=== PATIENT | male | born 1980 | race Caucasian/White ===

== ENCOUNTER 2019-11-19 08:15 | Observation (INO) | payer MEDICAID, OTHER ==
--- NOTE | 2019-11-19 09:18 | ED ---
General Adult HPI - General Chief complaint: Psychiatric Symptoms Stated complaint: Depression Time Seen by Provider: 11/19/19 08:24 Source: patient, police, RN notes reviewed Mode of arrival: wheelchair Limitations: no limitations - History of Present Illness Initial comments: Patient is a 31-year-old male presenting to the emergency department from half-way with correctional officers for depression. Patient admits to feeling depressed and having suicidal thoughts. Patient states he has not seen his kids and they were recently taken away from him and he has lost 2 jobs. Patient is also currently incarcerated. Officers state that patient has been agitated lately and he is currently the, stays been recently. There was some question whether or not patient could have benzodiazepine withdrawal. Patient denies taking benzodiazepines on a regular basis. Patient states he has taken Xanax and one other medication once however does not regularly take them. Patient has been incarcerated for the past week. Patient also states he does have some hallucinations, auditory and visual. - Related Data Home Medications Medication Instructions Recorded Confirmed Acetaminophen Tab [Tylenol Tab] 650 mg PO TID 11/19/19 11/19/19 Dicyclomine HCl 20 mg PO TID 11/19/19 11/19/19 Enalapril [Vasotec] 10 mg PO DAILY 11/19/19 11/19/19 Hydrochlorothiazide [Hydrodiuril] 25 mg PO DAILY 11/19/19 11/19/19 Promethazine [Phenergan] 25 mg PO TID 11/19/19 11/19/19 cloNIDine HCL [Catapres] 0.1 mg PO TID 11/19/19 11/19/19 hydrOXYzine PAMOATE 50 mg PO TID 11/19/19 11/19/19 Allergies Allergy/AdvReac Type Severity Reaction Status Date / Time No Known Allergies Allergy Verified 11/19/19 13:39 Review of Systems ROS Statement: Those systems with pertinent positive or pertinent negative responses have been documented in the HPI. ROS Other: All systems not noted in ROS Statement are negative. Constitutional: Denies: fever Eyes: Denies: eye pain ENT: Denies: ear pain Respiratory: Denies: cough Cardiovascular: Denies: chest pain Endocrine: Denies: fatigue Gastrointestinal: Denies: abdominal pain Genitourinary: Denies: dysuria Musculoskeletal: Denies: back pain Skin: Denies: rash Psychiatric: Reports: anxiety, depression, auditory hallucinations, visual hallucinations, suicidal thoughts Past Medical History Past Medical History: Hypertension History of Any Multi-Drug Resistant Organisms: None Reported Past Surgical History: Heart Catheterization, Orthopedic Surgery Past Psychological History: Anxiety Smoking Status: Current every day smoker Past Alcohol Use History: None Reported Past Drug Use History: Prescription Drug Abuse General Exam Limitations: no limitations General appearance: alert, in no apparent distress Head exam: Present: normocephalic Eye exam: Present: normal appearance, PERRL ENT exam: Present: normal oropharynx Neck exam: Present: normal inspection Respiratory exam: Present: normal lung sounds bilaterally Cardiovascular Exam: Present: regular rate, normal rhythm GI/Abdominal exam: Present: soft. Absent: distended, tenderness Extremities exam: Present: normal inspection Neurological exam: Present: alert Psychiatric exam: Present: anxious Skin exam: Present: normal color Course Vital Signs 11/19/19 11/19/19 11/19/19 08:17 09:21 10:00 Temperature 98.3 F 99.0 F Pulse Rate 112 H 108 H 96 Respiratory 24 20 Rate Blood Pressure 142/91 118/104 O2 Sat by Pulse 98 100 Oximetry 11/19/19 11:00 Temperature Pulse Rate 106 H Respiratory Rate Blood Pressure O2 Sat by Pulse Oximetry Medical Decision Making - Medical Decision Making Since he by mental health services, who will admit. - Lab Data Lab Results 11/19/19 Range/Units 11:21 Urine Opiates Screen Not Detected (NotDetected) Ur Oxycodone Screen Not Detected (NotDetected) Urine Methadone Screen Not Detected (NotDetected) Ur Propoxyphene Screen Not Detected (NotDetected) Ur Barbiturates Screen Not Detected (NotDetected) U Tricyclic Antidepress Not Detected (NotDetected) Ur Phencyclidine Scrn Not Detected (NotDetected) Ur Amphetamines Screen Not Detected (NotDetected) U Methamphetamines Scrn Not Detected (NotDetected) U Benzodiazepines Scrn Not Detected (NotDetected) Urine Cocaine Screen Not Detected (NotDetected) U Marijuana (THC) Screen Detected H (NotDetected) Disposition Clinical Impression: Depression, Suicidal ideation Disposition: TRANSFER TO PSYCH HOSP/UNIT Is patient prescribed a controlled substance at d/c from ED?: No Referrals: None,Stated [Primary Care Provider] - 1-2 days Decision Time: 13:54
[2019-11-19 11:58] LABS: Amphetamine Screen,Urine Not Detected (NotDetected); Barbiturate Screen,Urine Not Detected (NotDetected); Benzodiazepines Screen,Urine Not Detected (NotDetected); Cocaine Screen,Urine Not Detected (NotDetected); Methadone Screen, Urine Not Detected (NotDetected); Opiate Screen,Urine Not Detected (NotDetected); Oxycodone Screen, Urine Not Detected (NotDetected); Phencyclidine Screen,Urine Not Detected (NotDetected); Tricyclic Antidepressant,Urine Not Detected (NotDetected); Urn Cannabinoid Scrn Detected (NotDetected)
[2019-11-19] MEDS ORDERED: ACETAMINOPHEN TAB 500 MG TAB PO STA (14:40)
[2019-11-19] MEDS ORDERED: SODIUM CHLORIDE 0.9% 1,000 ML IV SCH ×2 (14:45→17:15)
[2019-11-19 15:21] LABS: Basophils # (A) 0.3 k/uL (0-0.2); Basophils % (A) 2 %; Eosinophils # (A) 0.1 k/uL (0-0.7); Eosinophils % (A) 1 %; HCT 50.6 % (39.0-53.0); HGB 18.2 gm/dL (13.0-17.5); Hyperchromasia Slight; Lymphocytes # (A) 0.7 k/uL (1.0-4.8); Lymphocytes % (A) 5 %; MCH 31.6 pg (25.0-35.0); MCV 87.8 fL (80.0-100.0); Mean Platelet Volume 7.7; Monocytes # (A) 0.9 k/uL (0-1.0); Monocytes % (A) 7 %; Neutrophils % (A) 84 %; Platelet Count 222 k/uL (150-450); RBC 5.76 m/uL (4.30-5.90); RDW 12.3 % (11.5-15.5); WBC 13.1 k/uL (3.8-10.6)
--- NOTE | 2019-11-19 15:23 | CT ---
EXAMINATION TYPE: CT brain wo con DATE OF EXAM: 11/19/2019 COMPARISON: None HISTORY: Mental status changes. CT DLP: 1099.[address] of the brain was performed. The ventricles, basal cisterns and sulci overlying the cerebral convexities demonstrate a normal appe arance. There is no evidence for intracranial hemorrhage or sulcal effacement. No mass effects are seen. Osseous calvarium is intact. Pineal gland calcification. If symptoms persist consider MRI as clinically warranted. IMPRESSION: 1. No acute intracranial process is seen at this time.
[2019-11-19 15:28] LABS: ALT 34 U/L (4-49); AST 38 U/L (17-59); African American GFR (CKD) >90 (>60 ml/min/1.73 sqM); Albumin 5.4 g/dL (3.5-5.0); Alkaline Phosphatase 125 U/L (38-126); Anion Gap 15 mmol/L; Blood Urea Nitrogen 22 mg/dL (9-20); Calcium 10.3 mg/dL (8.4-10.2); Carbon Dioxide 23 mmol/L (22-30); Chloride 97 mmol/L (98-107); Glucose 240 mg/dL (74-99); Non-African American GFR(CKD) >90 (>60 ml/min/1.73 sqM); Partial Thromboplastin Time 24.8 sec (22.0-30.0); Potassium 3.6 mmol/L (3.5-5.1); Prothrombin Time 10.2 sec (9.0-12.0); Sodium 135 mmol/L (137-145); Total Bilirubin 1.9 mg/dL (0.2-1.3); Total Protein 8.6 g/dL (6.3-8.2)
--- NOTE | 2019-11-19 15:31 | XR ---
EXAMINATION TYPE: XR chest 2V DATE OF EXAM: 11/19/2019 COMPARISON: NONE HISTORY: Chest pain TECHNIQUE: Frontal and lateral views of the chest are obtained. FINDINGS: There is no focal air space opacity. No evidence for pneumothorax. No pleural effusion. The cardiac silhouette size is within normal limits. The osseous structures are grossly intact. IMPRESSION: 1. No acute cardiopulmonary process.
[2019-11-19] MEDS ORDERED: LORazepam 2 MG/ML INJ IV STA (16:12)
[2019-11-19] MEDS ORDERED: NALOXONE 0.4 MG/ML 1 ML VIAL IV PRN (17:11)
[2019-11-19] MEDS ORDERED: ACETAMINOPHEN TAB 325 MG TAB PO PRN (17:11)
[2019-11-19] MEDS ORDERED: IBUPROFEN 400 MG TAB PO PRN (17:11)
--- NOTE | 2019-11-19 17:11 | ED ---
Medical Decision Making - Medical Decision Making Patient did develop fever in emergency department. Patient had further evaluation done and given Tylenol. Patient reevaluated at this time and feels much better. Patient is alert and oriented 3 and answers questions appropriately. No weakness. No meningismus. Discussion had with patient regarding lumbar puncture however patient refuses. Patient is felt to be very low suspicion for meningitis at this time. Source of fever however is not identified and patient is aware of this. Patient does them straight medical decision making. Case was discussed with psychiatrist, Dr. Louis who feels patient would be somewhat more benefit from medical admission and possible transfer to psychiatric admission tomorrow if patient remains stable. Case was also discussed with Dr. pruitt, who will admit covering for hospital call. EKG shows sinus tachycardia 105. MA 144. QRS 108. QT 350. QTC 462. Normal axis. Borderline inferior Q waves. No acute ST change. - Lab Data Result diagrams: 11/19/19 14:55 11/19/19 14:55 Lab Results 11/19/19 Range/Units 11:21 Urine Opiates Screen Not Detected (NotDetected) Ur Oxycodone Screen Not Detected (NotDetected) Urine Methadone Screen Not Detected (NotDetected) Ur Propoxyphene Screen Not Detected (NotDetected) Ur Barbiturates Screen Not Detected (NotDetected) U Tricyclic Antidepress Not Detected (NotDetected) Ur Phencyclidine Scrn Not Detected (NotDetected) Ur Amphetamines Screen Not Detected (NotDetected) U Methamphetamines Scrn Not Detected (NotDetected) U Benzodiazepines Scrn Not Detected (NotDetected) Urine Cocaine Screen Not Detected (NotDetected) U Marijuana (THC) Screen Detected H (NotDetected) Disposition Clinical Impression: Depression, Suicidal ideation, Fever Disposition: ADMITTED IP TO THIS HOSP Is patient prescribed a controlled substance at d/c from ED?: No
[2019-11-19] MEDS ORDERED: LORazepam 2 MG/ML INJ IV PRN (17:14)
[2019-11-19] MEDS: LORazepam 2 MG/ML INJ IV PRN ×2 (20:54→22:47)
[2019-11-19] MEDS: THIAMINE 100 MG TAB PO SCH ×2 (23:48→23:54)
[2019-11-20] MEDS: LORazepam 2 MG/ML INJ IV PRN ×2 (03:08→08:12)
[2019-11-20 07:02] LABS: Basophils # (A) 0.1 k/uL (0-0.2); Basophils % (A) 1 %; Eosinophils # (A) 0.2 k/uL (0-0.7); Eosinophils % (A) 1 %; HCT 48.2 % (39.0-53.0); HGB 17.1 gm/dL (13.0-17.5); Lymphocytes # (A) 1.1 k/uL (1.0-4.8); Lymphocytes % (A) 8 %; MCH 31.6 pg (25.0-35.0); MCHC 35.5 g/dL (31.0-37.0); MCV 89.1 fL (80.0-100.0); Mean Platelet Volume 7.7; Monocytes # (A) 0.8 k/uL (0-1.0); Monocytes % (A) 6 %; Neutrophils # (A) 10.3 k/uL (1.3-7.7); Neutrophils % (A) 82 %; Platelet Count 245 k/uL (150-450); RBC 5.41 m/uL (4.30-5.90); RDW 12.6 % (11.5-15.5); WBC 12.6 k/uL (3.8-10.6)
[2019-11-20 07:15] LABS: ALT 31 U/L (4-49); AST 38 U/L (17-59); African American GFR (CKD) >90 (>60 ml/min/1.73 sqM); Albumin 4.9 g/dL (3.5-5.0); Alkaline Phosphatase 118 U/L (38-126); Anion Gap 16 mmol/L; Blood Urea Nitrogen 20 mg/dL (9-20); Calcium 9.2 mg/dL (8.4-10.2); Carbon Dioxide 22 mmol/L (22-30); Chloride 98 mmol/L (98-107); Glucose 207 mg/dL (74-99); Non-African American GFR(CKD) 86 (>60 ml/min/1.73 sqM); Sodium 136 mmol/L (137-145); Total Bilirubin 1.5 mg/dL (0.2-1.3); Total Protein 8.1 g/dL (6.3-8.2)
[2019-11-20 08:04] VITALS: BP 108/70; PULSE 83; RESP 16; TEMP 98.3
[2019-11-20] MEDS: THIAMINE 100 MG TAB PO SCH (08:05)
[2019-11-20] MEDS ORDERED: MULTIVITAMINS, THERA 1 EACH TAB PO SCH (09:00)
[2019-11-20] MEDS ORDERED: METOPROLOL TARTRATE 25 MG TAB PO SCH (11:00)
--- NOTE | 2019-11-20 11:56 | P.HPIM ---
History of Present Illness Patient is a 31-year-old male was sent in from correction facility for depression patient is comparing of suicidal ideations. Patient was initially admitted to psychiatric floor and the patient out with fever because of which patient was admitted to my service. Patient presently doesn't have any fever patient had only 1 episode of 101 fever. Patient denied any flulike symptoms doesn't have any cough denied any dysuria patient doesn't have any photophobia, denied any diarrhea denied any nausea vomiting. Patient denied any headache neck rigidity. Patient has mild leukocytosis. Patient does have history of hypertension or change some of his medications. Patient had history of alcohol but patient wasn't correction for surgery for some time because of which I don't believe patient will have any withdrawals and patient is not expected to have any benzodiazepine withdrawals either. Ativan was discontinued. There is no clinical, biochemical are radiological evidence of infection except for mild leukocytosis which is reactive. Patient is medically stable to be discharged to either psychiatric floor at back to correction facility depending on the assessment by the psychiatrist. Patient will be discharged from medical service at this time. Review of Systems REVIEW OF SYSTEMS: CONSTITUTIONAL: No fever, no malaise, no fatigue. HEENT: No recent visual problems or hearing problems. Denied any sore throat. CARDIOVASCULAR: No chest pain, orthopnea, PND, no palpitations, no syncope. PULMONARY: No shortness of breath, no cough, no hemoptysis. GASTROINTESTINAL: No diarrhea, no nausea, no vomiting, no abdominal pain. NEUROLOGICAL: No headaches, no weakness, no numbness. HEMATOLOGICAL: Denies any bleeding or petechiae. GENITOURINARY: Denies any burning micturition, frequency, or urgency. MUSCULOSKELETAL/RHEUMATOLOGICAL: Denies any joint pain, swelling, or any muscle pain. ENDOCRINE: Denies any polyuria or polydipsia. The rest of the 14-point review of systems is negative. 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 before incarceration on 11/13/2019 lived with SO and 3 children, experienced a fall on rib cage before incarceration. Custodial nurse states he has been hallucinating for a 'couple days' prior to arrival at hospital on 11/19/2019 Smoking Status: Current every day smoker Past Alcohol Use History: Heavy Past Drug Use History: Cocaine, Marijuana, Prescription Drug Abuse Additional Drug Use History / Comment(s): patient was taking Xanax 0.6 TID at home prior to incarceration on 11/13/2019 - this has not been taken since incarceration - Past Family History Mother Family Medical History: Cancer, Diabetes Mellitus Additional Family Medical History / Comment(s): breast cancer Medications and Allergies Home Medications Medication Instructions Recorded Confirmed Type Acetaminophen Tab [Tylenol] 650 mg PO TID 11/19/19 11/19/19 History Dicyclomine HCl 20 mg PO TID 11/19/19 11/19/19 History Enalapril [Vasotec] 10 mg PO DAILY 11/19/19 11/19/19 History Promethazine [Phenergan] 25 mg PO TID 11/19/19 11/19/19 History hydrOXYzine PAMOATE 50 mg PO TID 11/19/19 11/19/19 History Metoprolol Tartrate [Lopressor] 25 mg PO BID #30 tab 11/20/19 Rx Allergies Allergy/AdvReac Type Severity Reaction Status Date / Time No Known Allergies Allergy Verified 11/19/19 13:39 Physical Exam Vitals: Vital Signs Temp Pulse Pulse Resp BP BP Pulse Ox 11/20/19 08:12 83 16 11/20/19 07:00 98.3 F 83 16 108/70 98 11/20/19 01:42 97.4 F L 112 H 18 141/95 95 11/19/19 19:52 98.7 F 109 H 145/90 97 11/19/19 18:56 98.4 F 114 H 18 124/87 97 11/19/19 16:10 99.9 F H 101 H 20 133/99 98 11/19/19 14:26 101.1 F H 105 H 18 123/95 97 Intake and Output 11/19/19 11/20/19 11/20/19 22:59 06:59 14:59 Intake Total 120 180 Balance 120 180 Intake: Intake, IV Titration 120 Amount Sodium Chloride 0.9% 1, 120 000 ml @ 20 mls/hr IV . Q24H [facility] Rx#:[id number] Oral 180 Other: Voiding Method Toilet Toilet Toilet Weight 90.718 kg PHYSICAL EXAMINATION: GENERAL: The patient is alert and oriented x3, not in any acute distress. Well developed, well nourished. HEENT: Pupils are round and equally reacting to light. EOMI. No scleral icterus. No conjunctival pallor. Normocephalic, atraumatic. No pharyngeal erythema. No thyromegaly. CARDIOVASCULAR: S1 and S2 present. No murmurs, rubs, or gallops. PULMONARY: Chest is clear to auscultation, no wheezing or crackles. ABDOMEN: Soft, nontender, nondistended, normoactive bowel sounds. No palpable organomegaly. MUSCULOSKELETAL: No joint swelling or deformity. EXTREMITIES: No cyanosis, clubbing, or pedal edema. NEUROLOGICAL: Gross neurological examination did not reveal any focal deficits. SKIN: No rashes. Results CBC & Chem 7: 11/20/19 06:18 11/20/19 06:18 Labs: Abnormal Lab Results - Last 24 Hours (Table) 11/19/19 11/19/19 11/19/19 Range/Units 11:21 14:55 14:55 WBC 13.1 H (3.8-10.6) k/uL Hgb 18.2 H (13.0-17.5) gm/dL Neutrophils # 11.0 H (1.3-7.7) k/uL Lymphocytes # 0.7 L (1.0-4.8) k/uL Basophils # 0.3 H (0-0.2) k/uL Sodium 135 L (137-145) mmol/L Chloride 97 L (98-107) mmol/L BUN 22 H (9-20) mg/dL Glucose 240 H (74-99) mg/dL Calcium 10.3 H (8.4-10.2) mg/dL Total Bilirubin 1.9 H (0.2-1.3) mg/dL Total Protein 8.6 H (6.3-8.2) g/dL Albumin 5.4 H (3.5-5.0) g/dL U Marijuana (THC) Screen Detected H (NotDetected) 11/20/19 11/20/19 Range/Units 06:18 06:18 WBC 12.6 H (3.8-10.6) k/uL Hgb (13.0-17.5) gm/dL Neutrophils # 10.3 H (1.3-7.7) k/uL Lymphocytes # (1.0-4.8) k/uL Basophils # (0-0.2) k/uL Sodium 136 L (137-145) mmol/L Chloride (98-107) mmol/L BUN (9-20) mg/dL Glucose 207 H (74-99) mg/dL Calcium (8.4-10.2) mg/dL Total Bilirubin 1.5 H (0.2-1.3) mg/dL Total Protein (6.3-8.2) g/dL Albumin (3.5-5.0) g/dL U Marijuana (THC) Screen (NotDetected) Thrombosis Risk Factor Assmnt - Choose All That Apply Any of the Below Risk Factors Present?: No Other Risk Factors: No Other congenital or acquired thrombophilia - If yes, enter type in comment: No Thrombosis Risk Factor Assessment Level: Very Low Risk Assessment and Plan Plan: 1 episode of fever: No other evidence of infection at this time fevers resolved no further intervention is necessary all the workup including influenza pneumoniae UTI workup is negative patient doesn't have any clinical signs or symptoms of meningitis or encephalitis. No need for LP patient is stable to be discharged to the psychiatric floor her back to senior living as mentioned above. -Hypertension: I do not have enough time to titrate his medications but clonidine will be disc in your patient will be started on beta [place] instead so that he will not have any reflux tachycardia. Patient blood pressure is low normal at this time had an echo thiazide will be discontinued and the anterolateral can be continued. depression: Further management as per psychiatric as mentioned above -History of alcohol abuse and marijuana use: Counseling was provided
--- NOTE | 2019-11-20 14:39 | P.CN ---
Psychiatric Consult - . 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 As per ER report states that his kids were taken away from him and he has lost his 2 jobs. Patient also stated that he was on Xanax taking it regularly and may have concern for benzodiazepine withdrawal however patient's UDS was negative. Patient was seen by psychiatry for depression. Patient was admitted to the medical floors for fever and increase in neutrophils and WBCs. As per nursing care patient states that he has been appropriate and has been in handcuffs with a card at his side and denied suicidal ideations. Patient was seen by web content writer and appeared to be for the most part appropriate and directable during conversation. Patient claims that he has been in nursing home since August after he was sentenced for drunk driving and was released on bail however violated his probation and return back to nursing home in November 15 and is set for his next court hearing in December 06. Patient states that he does have mild depression however at this time feels "fine" and spoke about how he cannot shower today and wanted to be released from his handcuffs. Patient also asked if he could gather his things to go back to nursing home. Patient stated that he has not seen his children. He spoke about mild anxiety. At this time patient denies any suicidal or homical ideations, intent or plan. Patient denies any auditory, visual hallucinations and denies any paranoia or delusions. Patient states that he used to drink approximately 1 pint of alcohol per day however claims that he quit 2 weeks ago. He also states that he smokes marijuana 2 g per day to help with his anxiety. PAST PSYCHIATRIC HISTORY: Patient denies any mental health outpatient follow-up and claims that he has been taking Xanax prescribed by his primary care physician. He denies any previous psychiatric admissions and denies any suicide attempts. PAST MEDICAL HISTORY: High blood pressure. ALLERGIES: as per EMR. CHEMICAL DEPENDENCY HISTORY: as per HPI. FAMILY PSYCHIATRIC/SUBSTANCE USE HISTORY: He states that "the women on my side have problems" however does not elaborate on it. 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 He has 3 kids and lives in a house but is currently in incarcerated at [facility].. MENTAL STATUS EXAM: General Appearance: Patient appears to be older than stated age is alert, overweight, directable attempts to cooperate. Poor hygiene and grooming and is handcuffed to the bed Behavior: Patient is calmly lying in bed without any agitated behavior. Speech: Patient's speech is fluent and nonpressured. Mood/Affect: Patient reports their mood is "fine", affect is congruent Suicidality/Homicidality: Patient denies having any suicidal or homicidal ideation intent or plan. Perceptions: Patient denies any auditory or visual hallucinations. Though content/process: There is no evidence of any delusional thought content and thought process is linear and goal-directed. Guarded/evasive at times. Memory and concentration: AOX3, grossly intact for the purposes of this session. Can spell "WORLD" backwards Judgment and insight: Limited. IMPRESSIONS: Depressive disorder unspecified Anxiety disorder unspecified Cannabis abuse History of alcohol abuse PLAN: -At this time patient does NOT meet criteria for inpatient psychiatric admi ssion. -Would recommend the following medication changes/additions: Patient can continue with his home medications. -Would recommend outpatient psychiatric follow-up -Psychiatry will sign off at this point, please call with any questions
[2019-11-21] MEDS ORDERED: LISINOPRIL 20 MG TAB PO SCH (09:00)
== END 2019-11-20 14:52 | disposition home or self-care (01) ==
LOC: EC 08:15 → 3MHU 14:28 → INTOOBSV 14:28 → 4SSUR 18:15 → UNDODISIN 11-20 14:52
PROVIDERS: ADMIT Psychiatry & Neurology Psychiatry; ATTEND Internal Medicine
DX: R50.9 Fever, unspecified (principal); R45.851 Suicidal ideations; R44.0 Auditory hallucinations; D72.829 Elevated white blood cell count, unspecified; F32.9 Major depressive disorder, single episode, unspecified; R44.1 Visual hallucinations; F41.9 Anxiety disorder, unspecified; I10 Essential (primary) hypertension; F17.200 Nicotine dependence, unspecified, uncomplicated; Z79.899 Other long term (current) drug therapy; Z98.890 Other specified postprocedural states; Z83.3 Family history of diabetes mellitus; Z80.3 Family history of malignant neoplasm of breast; F12.10 Cannabis abuse, uncomplicated; F10.10 Alcohol abuse, uncomplicated
CPT/HCPCS: 96376 ×2; 82075; 96374; 99285; 93005; 80053 ×2; 84443; 83605; 85025 ×2; 85610; 85730; 87040; 80306; 87502; 71046; 70450; G0378 ×3; J2060 ×2; 96365